=== PATIENT | male | born 1995 | race Hispanic/Latino ===

== ENCOUNTER 2018-07-08 13:10 | Inpatient (IN) | payer MEDICAID, OTHER ==
[~2018-07-08] VITALS: Ht 172.7 cm; Wt 65.5 kg
[2018-07-08 13:37] LABS: BASOPHILS % (AUTO) 0.2 % (0.0-5.0); HEMATOCRIT 48.6 % (42-54); LYMPHOCYTES % (AUTO) 4.8 % (21.0-51.0); MEAN CORPUSCULAR HEMOGLOBIN 30.8 pg (27.0-33.0); MEAN CORPUSCULAR HGB CONC 34.2 g/dL (32.0-36.0); MONOCYTES % (AUTO) 3.2 % (3.0-13.0); NEUTROPHILS % (AUTO) 91.8 % (40.0-77.0); PLATELET COUNT (AUTO) 154 K/uL (130-400); RED CELL DISTRIBUTION WIDTH 12.8 % (11.0-15.5); WHITE BLOOD COUNT (AUTO) 17.3 K/uL (4.8-10.8)
[2018-07-08] MEDS ORDERED: IBUPROFEN 600 MG TABLET ONE (13:40)
[2018-07-08] MEDS ORDERED: ACETAMINOPHEN EXTRA STRENGTH 500 MG TABLET ONE (13:40)
[2018-07-08] MEDS ORDERED: SODIUM CHLORIDE 0.9% 1000ML 1,000 ML IV ONE (13:40)
[2018-07-08 13:44] LABS: CARBON DIOXIDE 27 mmol/L (21-32); CHLORIDE 99 mmol/L (101-111); CREATININE 1.7 mg/dL (0.5-1.5); GLOMERULAR FILTR. RATE CALC 53 mL/min (>60); GLUCOSE,RANDOM 158 mg/dL (70-105); POTASSIUM 3.6 mmol/L (3.5-5.1); SODIUM SERUM 136 mmol/L (136-145); UREA NITROGEN, BLOOD 14 mg/dL (7-18)
[2018-07-08 13:47] LABS: APPEARANCE,URINE Clear (CLEAR); BILIRUBIN,URINE Negative (NEGATIVE); COLOR,URINE Dark Yellow (YELLOW); GLUCOSE, URINE (UA) Negative (NEGATIVE); KETONES,URINE Trace mg/dL (NEGATIVE); LEUKOCYTE ESTERASE ,URINE Trace (NEGATIVE); NITRATE,URINE Negative (NEGATIVE); OCCULT BLOOD,URINE Moderate (NEGATIVE); PROTEIN,URINE POS 2+ (NEGATIVE)
[2018-07-08 13:49] LABS: INR 1.19 (0.85-1.15); PARTIAL THROMBOPLASTIN TIME 29.2 SEC (26.3-35.5); PROTHROMBIN TIME 12.5 SEC (9.6-11.6)
[2018-07-08 13:55] LABS: ALANINE AMINOTRANSFERASE 23 U/L (12-78); ALBUMIN 3.7 g/dL (3.5-5.0); ASPARTATE AMINOTRANSFERASE 15 U/L (10-37); BILIRUBIN,TOTAL 1.4 mg/dL (0.2-1.0); CREATINE KINASE, TOTAL 85 U/L (21-232); LIPASE 78 U/L (114-286); MYOGLOBIN 23 ng/mL (10-92); TOTAL PROTEIN, SERUM 7.8 g/dL (6.0-8.3); TROPONIN I < 0.04 ng/mL (0.00-0.06)
[2018-07-08 14:02] LABS: BACTERIA,URINE Rare /HPF (None Seen); MUCUS,URINE Few LPF (None Seen); RBC,URINE 0-1 /HPF (0-1); SQUAMOUS EPITHELIAL CELL,UR Rare /HPF (0-2); WBC,URINE 0-1 /HPF (0-1)
[2018-07-08] MEDS ORDERED: CEFTRIAXONE SODIUM 1 GM ONE (14:41)
[2018-07-08] MEDS ORDERED: SODIUM CHLORIDE 0.9% 50 ML IV ONE (14:41)
[2018-07-08] MEDS ORDERED: ENOXAPARIN SODIUM 40 MG/0.4 ML SYRINGE SQ ONE (15:38)
[2018-07-08 16:56] VITALS: BP 125/77
[2018-07-08] MEDS ORDERED: ALBU0.63 IH (18:18)
[2018-07-08 19:30] VITALS: BP 117/63
[2018-07-08] MEDS: FAMOTIDINE 20MG TAB 20 MG TAB PO SCH (20:57)
[2018-07-08] MEDS: CEFTRIAXONE SODIUM 1 GM IVP SCH (22:45)
[2018-07-09] VITALS (7 sets, daily range): BP systolic 111–139; BP diastolic 69–92
[2018-07-09] MEDS: ACETAMINOPHEN 325 MG TAB PO PRN ×3 (00:37→21:57)
[2018-07-09 06:21] LABS: HEMATOCRIT 42.8 % (42-54); MEAN CORPUSCULAR HEMOGLOBIN 31.6 pg (27.0-33.0); MEAN CORPUSCULAR VOLUME 90.4 fL (79-99); PLATELET COUNT (AUTO) 139 K/uL (130-400); RED BLOOD CELL COUNT(AUTO) 4.73 MIL/uL (4.50-6.20); RED CELL DISTRIBUTION WIDTH 12.8 % (11.0-15.5); WHITE BLOOD COUNT (AUTO) 8.9 K/uL (4.8-10.8)
[2018-07-09 06:49] LABS: CREATININE 1.4 mg/dL (0.5-1.5); POTASSIUM 3.7 mmol/L (3.5-5.1)
[2018-07-09 08:06] LABS: BAND NEUTROPHILS % (MANUAL) 4 % (0-2); BASOPHILS % (MANUAL) 1 % (0-2); LYMPHOCYTES % (MANUAL) 19 % (22-44); MAN.DIFF COMMENT-IMPRESSION MANUAL DIFFERENTIAL; MONOCYTES % (MANUAL) 2 % (2-9); PLATELET MORPHOLOGY COMMENT ADEQUATE; SEGMENTED NEUTROPHILS % 74 % (40-70)
[2018-07-09] MEDS: FAMOTIDINE 20MG TAB 20 MG TAB PO SCH ×2 (09:20→21:47)
[2018-07-09] MEDS: ENOXAPARIN SODIUM 40 MG/0.4 ML SYRINGE SQ SCH (09:20)
[2018-07-09] MEDS: SODIUM CHLORIDE 0.9% 1000ML 1,000 ML IV SCH ×2 (17:41→21:46)
[2018-07-09] MEDS: CEFTRIAXONE SODIUM 1 GM IVP SCH (21:48)
[2018-07-10 04:35] VITALS: BP 126/70
[2018-07-10] MEDS: SODIUM CHLORIDE 0.9% 1000ML 1,000 ML IV SCH (04:39)
[2018-07-10 05:47] LABS: HEMATOCRIT 40.4 % (42-54); MEAN CORPUSCULAR HEMOGLOBIN 30.7 pg (27.0-33.0); MEAN CORPUSCULAR VOLUME 90.3 fL (79-99); NUCLEATED RED BLOOD CELLS 0.2 % (0.0-0.19); PLATELET COUNT (AUTO) 115 K/uL (130-400); RED BLOOD CELL COUNT(AUTO) 4.47 MIL/uL (4.50-6.20); RED CELL DISTRIBUTION WIDTH 12.6 % (11.0-15.5); WHITE BLOOD COUNT (AUTO) 4.6 K/uL (4.8-10.8)
[2018-07-10 05:55] LABS: CREATININE 1.2 mg/dL (0.5-1.5); MAGNESIUM 1.8 mg/dL (1.80-2.40); PHOSPHORUS 3.6 mg/dL (2.5-4.9)
[2018-07-10 07:00] VITALS: BP 115/65
[2018-07-10] MEDS: FAMOTIDINE 20MG TAB 20 MG TAB PO SCH (08:59)
[2018-07-10] MEDS ORDERED: AMOX-429 PO (08:59)
[2018-07-10] MEDS: ENOXAPARIN SODIUM 40 MG/0.4 ML SYRINGE SQ SCH (09:00)
[2018-07-10 11:00] VITALS: BP 120/65
== END 2018-07-10 14:50 | disposition home or self-care (01) | DRG 872 ==
LOC: EDH 13:10 → 3DH 15:10 → OBSVTOIN 15:10
PROVIDERS: ADMIT Family Medicine; ATTEND Family Medicine
DX: A41.9 Sepsis, unspecified organism (principal); N17.9 Acute kidney failure, unspecified; R30.0 Dysuria; R65.20 Severe sepsis without septic shock; E86.1 Hypovolemia; J45.909 Unspecified asthma, uncomplicated; B96.89 Other specified bacterial agents as the cause of diseases classified elsewhere; Z91.010 Allergy to peanuts; Z80.8 Family history of malignant neoplasm of other organs or systems
CPT/HCPCS: 36415; 71045; 80048; 80053; 81001; 82550; 83605; 83690; 83735; 83874; 84100; 84484; 85025; 85027; 85610; 85730; 86140; 87040; 87077; 87088; 87186; 87486; 87797; 87804; 93005; A4218; J0696; J1650; J7030

== ENCOUNTER 2022-09-23 22:40 | Emergency (ER) | payer OTHER ==
[~2022-09-23] VITALS: Ht 175.3 cm; Wt 76.2 kg
[~2022-09-23 22:40] MED LIST: ALBU0.63 IH; AMOX-429 PO
[2022-09-23] MEDS ORDERED: 0.9%NACL 1000ML 1,000 ML IV STA (23:01)
[2022-09-23] MEDS ORDERED: ONDANSETRON 4MG INJ ONE (23:03)
[2022-09-23 23:11] LABS: BASOPHILS % (AUTO) 0.7 % (0.0-5.0); EOSINOPHILS % (AUTO) 0.5 % (0.0-8.0); HEMATOCRIT 47.3 % (42-54); LYMPHOCYTES % (AUTO) 23.6 % (21.0-51.0); MEAN CORPUSCULAR HEMOGLOBIN 30.6 pg (27.0-33.0); MEAN CORPUSCULAR HGB CONC 35.3 g/dL (32.0-36.0); MEAN CORPUSCULAR VOLUME 86.8 fL (79-99); MONOCYTES % (AUTO) 8.8 % (3.0-13.0); NEUTROPHILS % (AUTO) 66.1 % (40.0-77.0); PLATELET COUNT (AUTO) 266 K/uL (130-400); RED BLOOD CELL COUNT(AUTO) 5.45 MIL/uL (4.50-6.20); RED CELL DISTRIBUTION WIDTH 11.9 % (11.0-15.5); WHITE BLOOD COUNT (AUTO) 9.2 K/uL (4.8-10.8)
[2022-09-23 23:14] LABS: APPEARANCE,URINE CLEAR (CLEAR); BILIRUBIN,URINE NEGATIVE (NEGATIVE); COLOR,URINE YELLOW (YELLOW); GLUCOSE, URINE (UA) NEGATIVE (NEGATIVE); KETONES,URINE 10 mg/dL (NEGATIVE); LEUKOCYTE ESTERASE ,URINE NEGATIVE Leu/uL (NEGATIVE); NITRATE,URINE NEGATIVE (NEGATIVE); OCCULT BLOOD,URINE MODERATE (NEGATIVE); PH,URINE 5.5 (5.0-8.0); PROTEIN,URINE 50 mg/dL (NEGATIVE); UROBILINOGEN,URINE 0.2 mg/dL (0.2-1.0)
[2022-09-23 23:16] LABS: BACTERIA,URINE RARE /HPF (None Seen); MUCUS,URINE FEW LPF (None Seen); WBC,URINE 0-1 /HPF (0-1)
[2022-09-23 23:19] LABS: CREATININE 1.6 mg/dL (0.5-1.5); POTASSIUM 3.5 mmol/L (3.5-5.1)
[2022-09-23 23:21] LABS: AMPHET/METH SCREEN,URINE NEGATIVE (NEGATIVE); BARBITURATE SCREEN, URINE NEGATIVE (NEGATIVE); BENZODIAZEPINES SCREEN,URINE NEGATIVE (NEGATIVE); CANNABINOID SCREEN,URINE NEGATIVE (NEGATIVE); COCAINE SCREEN,URINE POSITIVE (NEGATIVE); OPIATE SCREEN,URINE NEGATIVE (NEGATIVE); PHENCYCLIDINE SCREEN,URINE NEGATIVE (NEGATIVE)
[2022-09-23 23:26] LABS: ALBUMIN 4.5 g/dL (3.5-5.0); TOTAL PROTEIN, SERUM 8.1 g/dL (6.0-8.3)
[2022-09-23] MEDS ORDERED: ONDANSETRON 4MG INJ IVP ONE (23:30)
[2022-09-24 02:04] VITALS: BP 139/83
== END 2022-09-24 02:06 | disposition home or self-care (01) ==
LOC: EDH 22:40
DX: F14.10 Cocaine abuse, uncomplicated (principal); I44.7 Left bundle-branch block, unspecified; N28.9 Disorder of kidney and ureter, unspecified; Z79.2 Long term (current) use of antibiotics; Z79.899 Other long term (current) drug therapy
CPT/HCPCS: 99284; 96374; 84484; 80053; 80305; 83690; 85025; 36415; 93005; 81001; J7030; J2405

== ENCOUNTER 2025-07-16 11:34 | Emergency (ER) | payer OTHER ==
[~2025-07-16] VITALS: Ht 175.3 cm; Wt 80.3 kg
--- NOTE | 2025-07-16 11:49 | ERN ---
ED Note History of Present Illness Stated Complaint: FEVER Chief Complaint: Fever Time Seen by MD: 11:39 Time Seen by Midlevel: 11:40 Dictation: Mr Chery is a 29-year-old male with history of asthma who presented to the emergency department this morning for evaluation of fever. He reports remind me 4-5 days of fatigue, general weakness, productive cough, sore throat, congestio n, and abdominal pain. He states he developed fever up to 102 and was seen at an urgent care clinic yesterday. He states that he had swabs for influenza A/B my COVID, and strep all which were negative. He states he started some amoxicillin he had at home. He denies fever, chills, chest pain, palpitations, edema, nausea, vomiting, hematemesis, constipation, diarrhea, melena, he matochezia, dysuria, headache, dizziness, or focal weakness/paresthesia Allergies: Coded Allergies: peanut (Verified Allergy, Unknown, 07/08/18) Home Meds Active Scripts Benzonatate (Tessalon Perles) 100 Mg Cap, 1 CAP PO TID for cough for 10 Days, #30 CAP 0 Refills Prov:[facility]EX [facility] 07/16/25 Ibuprofen (Ibuprofen) 600 Mg Tablet, 600 MG PO Q6H PRN for PAIN, #15 TAB 0 Refills Prov:ALEX LU [facility] 07/16/25 Azithromycin (Azithromycin) 250 Mg Tablet, 250 MG PO DAILY for 4 Days, #4 TAB 0 Refills Prov:ALEX LU [facility] 07/16/25 Amoxicillin/Potassium Clav (Augmentin 875-125 Tablet) 1 Each Tablet, 1 EACH PO BID for 7 Days, #14 TAB Prov:CHANO SINGH Jr., MD 07/10/18 Reported Medications Albuterol Sulfate (Albuterol Sulfate) 0.63 Mg/3 Ml Vial.neb, 0.63 MG IH AD PRN for SHORTNESS OF BREATH/WHEEZING, INH 07/08/18 Past Medical History Past Medical History: No Pertinent History Surgical History: Other Surgical History Other: 3RD, 4TH, 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 Reports fatigue, general weakness, fever, and chills EYES: Patient denies any visual symptoms. EARS, NOSE, AND THROAT: No difficulties with hearing. No symptoms of rhinitis reports sore throat CARDIOVASCULAR: Patient denies chest pains, palpitations, orthopnea and paroxysmal nocturnal dyspnea. RESPIRATORY: No dyspnea on exertion, no wheezing. Reports congested cough. GI: No nausea, vomiting, diarrhea, constipation,hematochezia or melena. : No urinary hesitancy or dribbling. No nocturia or urinary frequency. No abnormal urethral discharge. MUSCULOSKELETAL: No myalgias or arthralgias. NEUROLOGIC: No chronic headaches, no seizures. Patient denies numbness, tingling or weakness. PSYCHIATRIC: Patient denies problems with mood disturbance. No problems with anxiety. ENDOCRINE: No excessive urination or excessive thirst. DERMATOLOGIC: Patient denies any rashes or skin changes. Initial Vital Sign VS Vital Signs Date Time Temp Pulse Resp B/P (MAP) Pulse Ox O2 Delivery O2 Flow Rate FiO2 07/16/25 11:37 100.8 138 20 125/96 99 Room Air 07/16/25 12:18 0 21 Physical Exam Dictation Vital signs: Reviewed. Temp 100.8 Constitutional: No acute distress. Non-toxic appearing. Pleasant Head/Face: Normocephalic, atraumatic. Eyes: Periorbital areas with no swelling, redness, or edema. Lids and lashes are normal. Conjunctival injection is absent. Sclera anicteric. Pupils equal, round, reactive to light. ENT: Pinnas intact and no signs of trauma or erythema. Ear canals clear and no discharge. TMs no erythema. No nasal discharge or bleeding noted. Oropharynx with erythema; no exudate, swelling, masses, exudates, or evidence of obstruct ion. Uvula midline. Mucous membranes moist. Neck: Trachea midline, no masses palpated, and no cervical lymphadenopathy. No swelling. Supple, full range of motion. Chest/Axilla: No tenderness, no crepitus, no paradoxical movement, no retractions. Cardiovascular: Regular rate, regular rhythm, no murmur, no gallops. Symmetric pulses. No peripheral edema. Normotensive. Tachycardic with heart rate 138 Respiratory: Respirations even and unlabored. Lung sounds clear; no wheezes, rales or rhonchi. Room air SpO2 99% Gastrointestinal: Inspection is normal. No distention is appreciated. Bowel sounds are normal. No mass or organomegaly . There is no tenderness. No rebound. No rigidity. No voluntary or involuntary guarding. No Galloway's sign. Neurological: Normal speech, gross motor function intact, gross sensory function intact. No focal weakness/Paresthesia. Musculoskeletal/Extremities: All extremities have full range of motion, no pain or tenderness on palpation. Symmetric pulses. Integumentary: Intact. Skin is normal color, warm and dry. Cap refill less than 2 seconds. Results (Laboratory/Radiology) Laboratory/Radiology Laboratory Tests Test 07/16/25 11:35 07/16/25 11:56 Sodium Level 134 mmol/L (136-145) L Potassium Level 4.0 mmol/L (3.5-5.1) Chloride Level 99 mmol/L (101-111) L Carbon Dioxide Level 28 mmol/L (21-32) Blood Urea Nitrogen 11 mg/dL (7-18) Creatinine 1.5 mg/dL (0.5-1.3) H Glomerular Filtration Rate Calc 64 mL/min (>90) Random Glucose 110 mg/dL (70-105) H Lactic Acid Level 1.6 mmol/L (0.8-2.5) Total Calcium 8.5 mg/dL (8.5-10.1) White Blood Count 6.6 K/uL (4.8-10.8) Red Blood Count 5.30 MIL/uL (4.50-6.20) Hemoglobin 16.6 g/dL (14.0-18.0) Hematocrit 49.4 % (42-54) Mean Corpuscular Volume 93.2 fL (79-99) Mean Corpuscular Hemoglobin 31.3 pg (27.0-33.0) Mean Corpuscular Hemoglobin Concent 33.6 g/dL (32.0-36.0) Red Cell Distribution Width 13.6 % (11.0-15.5) Platelet Count 220 K/uL (130-400) Mean Platelet Volume 9.5 fL (7.5-10.5) Immature Granulocyte % (Auto) 0.2 % (0-1) Neutrophils (%) (Auto) 76.1 % (40.0-77.0) Lymphocytes (%) (Auto) 10.5 % (21.0-51.0) L Monocytes (%) (Auto) 12.5 % (3.0-13.0) Eosinophils (%) (Auto) 0.2 % (0.0-8.0) Basophils (%) (Auto) 0.5 % (0.0-5.0) Neutrophils # (Auto) 5.0 K/uL (1.8-7.7) Lymphocytes # (Auto) 0.7 K/uL (1.0-4.8) L Monocytes # (Auto) 0.8 K/uL (0.1-1.0) Eosinophils # (Auto) 0.01 K/uL (0.00-0.70) Basophils # (Auto) 0.03 K/uL (0.00-0.20) Absolute Immature Granulocyte (auto 0.01 K/uL (0-1) Nucleated Red Blood Cells 0.0 % (0.0-0.19) Labs Reviewed?: Yes X-RAY Comment: Chest x-ray revealed hazy interstitial markings with mild atelectasis; possible early pneumonia as interpreted by myself. Radiologist's report to follow ED Course ED Course Orders Procedure Category Date Status Time Cbc With Differential LAB 07/16/25 Complete 11:43 Basic Metabolic Panel LAB 07/16/25 Complete 11:43 Lactic Acid LAB 07/16/25 Complete 11:43 Chest 2vws RAD 07/16/25 Resulted 11:43 Blood Cult TONI 07/16/25 In Process 11:43 Acetaminophen 500mg PHA 07/16/25 Complete Tab (Tylenol 500mg T 12:30 Acetaminophen 500mg PHA 07/16/25 Complete Tab (Tylenol 500mg T 12:20 0.9%Nacl 1000ml (Ns PHA 07/16/25 In Process 1000ml) 13:00 Ketorolac PHA 07/16/25 In Process Tromethamine 15mg/Ml 13:00 Azithromycin PHA 07/16/25 In Process (Zithromax) 13:00 Current Medications Medications (Trade) Dose Ordered Sig/Adarsh Route PRN Reason Start Time Stop Time Status Last Admin Dose Admin Acetaminophen (TYLenol 500MG TAB) 500 mg STK-MED ONCE .ROUTE 07/16/25 12:20 07/16/25 12:21 DC Acetaminophen (TYLenol 500MG TAB) 1,000 mg ONCE ONCE PO 07/16/25 12:30 07/16/25 12:31 DC 07/16/25 12:22 Azithromycin (Zithromax) 500 mg ONCE ONCE PO 07/16/25 13:00 07/16/25 13:01 07/16/25 13:09 Ketorolac Tromethamine (toRADol) 15 mg ONCE ONCE IV 07/16/25 13:00 07/16/25 13:01 07/16/25 13:09 Sodium Chloride 1,000 ml @ 0 mls/hr ONCE ONCE IV 07/16/25 13:00 07/16/25 13:01 07/16/25 13:09 Vital Signs Date Time Temp Pulse Resp B/P (MAP) Pulse Ox O2 Delivery O2 Flow Rate FiO2 07/16/25 12:18 101.1 124 20 134/78 97 Room Air* 0 21 07/16/25 11:37 100.8 138 20 125/96 99 Room Air Patient arrived with low-grade temp 100.8 and tachycardia. Fever did increase to 101.1. SpO2 remains 97-99%. Lung sounds essentially clear; no crackles, rhonchi, or wheezes. Nonproductive cough while in ED. He received doses Toradol and acetaminophen for fever as well as NS 1000 mL IV as bolus. He received initial loading dose azithromycin 500 mg p.o.. Laboratory findings as noted below. There is no elevation of lactic acid level. He has a normal neutrophil count at 76%, low lymphocytes 10%, and monocytes 12.5%. There is no elevation of WBCs; differential very much fix clinical picture of atypical pneumonia, viral respiratory infection, and possible early bacterial infection. Na/Cl 134/99and CR 1.5 his chest x-ray noted hazy interstitial markings with mild atelectasis consistent with possible early pneumonia. Findings were discussed with patient and he will be discharged to home with antibiotics, cough med, and Motrin. Medical Decision Making MDM MDM: Differential diagnosis: Atypical pneumonia, viral upper respiratory infection, bronchitis, sepsis Rationale: Tests considered and ordered secondary to shared decision making include: Lab, x-ray Previous outside records reviewed: Old ER visits. Risk of complication and/or morbidity or mortality of patient management: None Medications-Per medication reconciliation Need for hospitalization: Patient does not meet criteria for hospitalization. Need for emergency major/minor surgery: No There are no social concerns with this patient. Prescription drug management: Azithromycin, ibuprofen, Tessalon Perles Prescriptions will include symptomatic care Patient's prior external medical records from other ER visits were reviewed by me as indicated. Prior testing and results from previous visits were reviewed. Prior tests were taken into account with medical decision making and resource utilization, independent historian/historians were used to obtain complete medic al history. I independently interpreted the test that were performed, results were reviewed by me and considered findings on radiology if ordered. Medical management and examination interpretation discussions were had by me with other qualified healthcare professionals as indicated for the patient's care. DX & DISP Disposition: Discharge Departure Impression: Primary Impression: Atypical pneumonia Additional Impressions: Cough, BEST (acute kidney injury), Dehydration, Fever Condition: Stable Scripts Benzonatate (Tessalon Perles) 100 Mg Cap 1 CAP PO TID for cough for 10 Days, #30 CAP 0 Refills Prov: ALEX LU [facility] 07/16/25 Ibuprofen (Ibuprofen) 600 Mg Tablet 600 MG PO Q6H PRN for PAIN, #15 TAB 0 Refills Prov: ALEX LU [facility] 07/16/25 Azithromycin (Azithromycin) 250 Mg Tablet 250 MG PO DAILY for 4 Days, #4 TAB 0 Refills Prov: ALEX LU [facility] 07/16/25 Additional Instructions: Your evaluation shows signs of a respiratory infection. Your chest x-ray does not show a large pneumonia, but earlier atypical pneumonia can be present even when the x-ray looks normal. Your fever and cough or consistent with this. Your vital signs improved with fever control and fluids. You are being treated with azithromycin, which covers both typical and atypical bacteria. Take the azithromycin once daily for the next four days (you received initial dose in emergency department). Tessalon Perles every 8 hours as needed for cough. You may take [id number] Tylenol as needed for fever. You may also take ibuprofen 600 mg every 6-8 hours as needed for fever. You need to drink plenty of water over the next 48 hour. Fever can cause dehydration and fluids can help lower heart rate and improves symptoms. Rest has much as you can at home. Avoid strenuous activity until fever resolves. Use a humidifier or warm shower to loosen mucus. Avoid smoke exposure. Follow up with your primary care physician within 2-3 days to monitor improvement. Return to the ER if you develop worsening shortness of breath, chest pain, persistent fever greater than 102 despite medication, heart rate staying over 120, vomiting and inability to keep fluids down, feeling faint/week, confusion, or any new/worsening symptoms that concern you. Referrals: NONE (PCP) Time of Disposition: 12:46 ALEX LU Jul 16, 2025 11:48
[2025-07-16 12:02] LABS: IMMATURE GRANULOCYTE ABSOLUTE 0.01 K/uL (0-1); NUCLEATED RED BLOOD CELLS 0.0 % (0.0-0.19); PLATELET COUNT (AUTO) 220 K/uL (130-400); RED BLOOD CELL COUNT(AUTO) 5.30 MIL/uL (4.50-6.20); RED CELL DISTRIBUTION WIDTH 13.6 % (11.0-15.5); WHITE BLOOD COUNT (AUTO) 6.6 K/uL (4.8-10.8)
[2025-07-16 12:08] LABS: CREATININE 1.5 mg/dL (0.5-1.3); GLOMERULAR FILTR. RATE CALC 64.0 mL/min (>90); GLUCOSE,RANDOM 110.0 mg/dL (70-105); SODIUM SERUM 134.0 mmol/L (136-145); UREA NITROGEN, BLOOD 11.0 mg/dL (7-18)
--- NOTE | 2025-07-16 12:58 | HMCIMG ---
EXAM: CR Chest, 2 View. CLINICAL HISTORY: shortness of breath/cough COMPARISON: None provided. FINDINGS: LUNGS: There is no mass, infiltrate, or acute pulmonary abnormality. PLEURAL SPACES: No pleural effusion or pneumothorax. MEDIASTINUM: The cardiomediastinal silhouette is within normal limits. BONES: No acute osseous abnormality. IMPRESSION: No acute cardiopulmonary pathology is evident. /[place]
[2025-07-16] MEDS: AZITHROMYCIN 250 MG TABLET PO ONE (13:09)
[2025-07-16] MEDS: 0.9%NACL 1000ML 1,000 ML IV ONE (13:09)
[2025-07-16 13:47] VITALS: BP 124/73; PULSE 105; RESP 18; TEMP 99.8; O2SAT 97
== END 2025-07-16 13:55 | disposition home or self-care (01) ==
LOC: EDH 11:34
DX: J18.9 Pneumonia, unspecified organism (principal); N17.9 Acute kidney failure, unspecified; E86.0 Dehydration; R05.9 Cough, unspecified; R50.9 Fever, unspecified
CPT/HCPCS: 99284; 96374; 71046; 96361; 80048; 85025; 87040 ×2; 83605; 36415; J1885; J7030